=== PATIENT | female | born 1955 | race Two or more races ===

== ENCOUNTER 2021-03-22 16:15 | Emergency (ER) | payer SELFPAY ==
[~2021-03-22] VITALS: Ht 162.6 cm; Wt 86.5 kg
--- NOTE | 2021-03-22 16:41 | NUR ---
ASSUMED CARE OF PT. PT HAS C/O OF INTERMITTENT BLACK DOT IN HER VISION FOR PAST WEEK. PT IS DRIVING FROM [place] TO HOME IN [place] AND HER EYE DOC INSTRUCTED PT TO COME TO THE ED. PT SITTING IN CHAIR, FABI LUGO.
[2021-03-22 16:45] VITALS: BP 186/89
--- NOTE | 2021-03-22 16:49 | NUR ---
PT UP TO BATHROOM AND BACK W/O INCIDENT, STEADY GAIT. CALL LIGHT WITHIN REACH. PAULN.
--- NOTE | 2021-03-22 17:40 | NUR ---
DR DIAZ AT BEDSIDE
--- NOTE | 2021-03-22 18:03 | NUR ---
dr oneil spoke with dr kinsey
--- NOTE | 2021-03-22 18:17 | NUR ---
DISCHARGE INSTRUCTIONS REVIEWED WITH PT. ALL QUESTIONS ANSWERED AT THIS TIME.
== END 2021-03-22 18:19 | disposition home or self-care (01) ==
LOC: ED 18:15
DX: H54.61 Unqualified visual loss, right eye, normal vision left eye (principal); Z88.8 Allergy status to other drugs, medicaments and biological substances; Z79.899 Other long term (current) drug therapy
CPT/HCPCS: 99282